=== PATIENT | female | born 2000 | race Caucasian/White ===

== ENCOUNTER → 2018-12-05 13:10 | Outpatient (ROUT) | payer OTHER, SELFPAY | PROVIDERS: PCP Family Medicine; Visit Provider Family Medicine | DX: N18.9 Chronic kidney disease, unspecified (principal); R59.9 Enlarged lymph nodes, unspecified; J02.9 Acute pharyngitis, unspecified | CPT/HCPCS: 87081; 87147 ==

== ENCOUNTER 2021-03-23 12:48 | Emergency (ER) | payer OTHER, SELFPAY ==
[2021-03-23 12:58] VITALS: BP 121/65; PULSE 91; RESP 15; TEMP 36.1; O2SAT 97; BMI 24.3
--- NOTE | 2021-03-23 14:58 | DI.RAD.S_ITS ---
PROCEDURE: XR ELBOW RT MIN 3V INDICATIONS: continued elbow pain TECHNIQUE: 3 views of the elbow were acquired. COMPARISON: None. FINDINGS: Bones: No fractures or dislocations. No suspicious bony lesions. Soft tissues: No elbow joint effusion. No suspicious soft tissue calcifications. IMPRESSION: No evidence acute bony abnormality of the right elbow. If clinical suspicion and/or symptoms persist, further assessment with repeat plain films, or advanced imaging (e.g., CT, MRI, or bone scan) may be helpful for further assessment. Dictated by: Constantine Dillon M.D. on 03/23/2021 at 15:10 Approved by: Constantine Dillon M.D. on 03/23/2021 at 15:11
--- NOTE | 2021-03-23 16:08 | ED_ITS ---
HPI - Extremity Injury (Upper) <Paco Izquierdo PA-C - Last Filed: 03/24/21 10:48> General Chief Complaint: Extremity Injury, Upper Stated Complaint: Rt Elbow Injury, Fall, 2 Wks Ago Time Seen by Provider: 03/23/21 13:18 Source: patient Mode of arrival: Ambulatory Limitations: no limitations History of Present Illness HPI narrative: Lois presents today with chief complaint of continued right elbow pain. She reports that she had a fall directly onto her right elbow approximately 2 weeks ago. She was seen at the walk-in clinic in x-rays were done which did not show any obvious fracture. She then followed up 3 days later because of continued pain. Repeat x-rays were done which again did not show any obvious fracture but recommended CT scan if pain persisted to evaluate for occult fracture. She reports that she has been applying ice, doing light range of motion, and not really lifting anything with her arm. Over the last 2 days has had increased swelling and pain to her right elbow. She is concerned that there may have been an underlying fracture that was not revealed with the 1st to radiographs. She denies any significant numbness or tingling, rash, or any other acute concerns or complaints at this time. Related Data Home Medications Medication Instructions Recorded Confirmed [probiotics] #0 08/14/17 multivitamin (Multiple Vitamins) 1 tab PO QDAY #0 08/14/17 norethindrone 1 mg-ethinyl #0 08/14/17 estradiol 20 mcg (24)-iron 75 mg (4) tablet () sertraline 100 mg tablet (Zoloft) #0 08/14/17 Previous Rx's Medication Instructions Recorded ciprofloxacin HCl 250 mg tablet 250 mg PO BID #6 tab 08/14/17 phenazopyridine 200 mg tablet 200 mg PO TID #6 tab 08/14/17 (Pyridium) Allergies Allergy/AdvReac Type Severity Reaction Status Date / Time Sulfa (Sulfonamide Allergy Verified 03/23/21 12:58 Antibiotics) buspirone [From BUSPAR] AdvReac Unknown Verified 03/23/21 12:58 escitalopram [From LEXAPRO] AdvReac Unknown Verified 03/23/21 12:58 Review of Systems <Paco Izquierdo PA-C - Last Filed: 03/24/21 10:48> Review of Systems Narrative: As per HPI Patient History <Paco Izquierdo PA-C - Last Filed: 03/24/21 10:48> Social History Smoking Status: Unknown if ever smoked Smoking Status: Unknown if ever smoked alcohol intake frequency: holidays/special occasions only Substance Use Type: does not use Exam <Paco Izquierdo PA-C - Last Filed: 03/24/21 10:48> Narrative Exam Narrative: Exam Narrative: Const General: cooperative, healthy appearing, comfortable, no acute distress, well developed and well groomed Nutritional Appearance: average body habitus Orientation: alert and oriented x3 HENMT Head: normal to inspection and atraumatic Ears: hearing grossly normal bilaterally Nose: external nose normal and nares normal Face and sinus: normal facial exam Neck Neck: normal visual inspection and supple Resp Effort & Inspection: normal respiratory effort, able to speak in complete sentences, no audible wheezes, not labored, no nasal flaring and no respiratory distress Neuro General: alert, oriented x3, gait normal, tone normal and moves all extremities Cognition: normal cognition Speech: speech normal Gait: normal gait Extremities: Upper extremities exposed. Grossly normal in appearance with no obvious swelling, ecchymosis or erythema. No joint effusions noted. Slightly decreased range of motion of right elbow secondary to pain. She has tenderness to palpation just proximal to the elbow joint, at the elbow joint, and just distal to the elbow joint. Radial pulses are equal bilaterally. Sensation is intact and normal in bilateral upper extremities. Billiard Table Repairer strength is equal. No overlying skin abnormalities noted. No overt warmth noted. Psych Appearance: grossly normal and well kempt Mental Status: mental status grossly normal Speech and Movement: speech and movement normal Mood: congruent mood Affect: normal affect Initial Vital Signs Initial Vital Signs: Vital Signs Temperature 97 F L 03/23/21 12:58 Pulse Rate 91 H 03/23/21 12:58 Respiratory Rate 15 03/23/21 12:58 Blood Pressure 121/65 03/23/21 12:58 Pulse Oximetry 97 03/23/21 12:58 <Aminata Gutierrez MD - Last Filed: 03/30/21 07:23> Initial Vital Signs Initial Vital Signs: Vital Signs Temperature 97 F L 03/23/21 12:58 Pulse Rate 91 H 03/23/21 12:58 Respiratory Rate 15 03/23/21 12:58 Blood Pressure 121/65 03/23/21 12:58 Pulse Oximetry 97 03/23/21 12:58 Course <Paco Izquierdo PA-C - Last Filed: 03/24/21 10:48> Orders Ordered: ED Orders 03/23/21 14:58 XR elbow RT min 3V Stat Vital Signs Vital signs: Vital Signs - 8 hr 03/23/21 12:58 Temperature 97 F L Pulse Rate 91 H Respiratory Rate 15 Blood Pressure 121/65 Pulse Oximetry 97 <Aminata Gutierrez MD - Last Filed: 03/30/21 07:23> Orders Ordered: ED Orders 03/23/21 14:58 XR elbow RT min 3V Stat Vital Signs Vital signs: Vital Signs - 8 hr 03/23/21 12:58 Temperature 97 F L Pulse Rate 91 H Respiratory Rate 15 Blood Pressure 121/65 Pulse Oximetry 97 MDM - Extremity Injury (Upper) <Paco Izquierdo PA-C - Last Filed: 03/24/21 10:48> Lab Data Labs: Point of Care Testing Test Results Negative MDM Narrative Medical decision making narrative: Differential diagnosis considered includes fracture, sprain, ligament rupture, bursitis. Patient does not have any obvious fractures including avulsion fractures on x-ray or CT scan. No obvious joint effusion noted. She has intact range of motion. If she continues to have pain then an MRI likely would be warranted. Recommend PCP follow-up. Strict return precautions were discussed including fever, increased joint swelling, joint redness, rash or any other acute concerns or complaints. Patient verbalizes understanding and agrees to plan and has no further concerns at this time. Thank you A [id number] system was used with the dictation of this note. Please disregard any spelling or grammatical errors. <Aminata Gutierrez MD - Last Filed: 03/30/21 07:23> Lab Data Labs: Point of Care Testing Test Results Negative Discharge Plan Departure Patient Disposition: Home Clinical Impression: Effusion of right elbow, Elbow pain, right Instructions: DI for Elbow Pain Activity Restrictions/Additional Instructions: It was nice to meet you this afternoon. No obvious fracture was identified on x-ray or CT. Recommend continuing to apply ice, do light range of motion and use acetaminophen or ibuprofen as needed for pain management. Consider following up with PCP if symptoms fail to improve and getting an MRI. Thank you Paco Izquierdo PA-C Prescriptions: No Action multivitamin [Multiple Vitamins] 1 EACH tablet 1 tab PO QDAY Qty: 0 RF: 0 sertraline [Zoloft] 100 MG tablet Qty: 0 RF: 0 norethindrone-e.estradiol-iron [] 1 EACH tablet Qty: 0 RF: 0 [probiotics] Qty: 0 RF: 0 phenazopyridine [Pyridium] 200 MG tablet 200 mg PO TID Qty: 6 RF: 0 ciprofloxacin HCl 250 MG tablet 250 mg PO BID Qty: 6 RF: 0 <Aminata Gutierrez MD - Last Filed: 03/30/21 07:23> Cosign ED Attending Cosignature Attestation: I was immediately available in the department for consultation throughout this patient's visit. I agree with documentation as above. Aminata Gutierrez MD
--- NOTE | 2021-03-23 16:14 | DI.CT.S_ITS ---
PROCEDURE: CT UE RT WO CON INDICATIONS: possible distal humerous fracture, normal xray TECHNIQUE: Noncontrast 1-1.5 mm axial sections were acquired through the elbow joint, with coronal and sagittal reformats. COMPARISON: [facility], , XR ELBOW RT MIN 3V, 03/23/2021, 14:54. FINDINGS: Image quality: Excellent. Bones: No fracture identified at the elbow. Soft tissues: Elbow joint effusion. IMPRESSION: There is an elbow joint effusion. There is no CT evidence of acute bony fracture. However, occult fracture is not excluded. Comment: Consider repeat plain films in 7-10 days. Alternatively, consider nonemergent MRI. Dictated by: Constantine Dillon M.D. on 03/23/2021 at 17:24 Approved by: Constantine Dillon M.D. on 03/23/2021 at 17:27
[2021-03-23 16:22] VITALS: BP 126/47; PULSE 73; RESP 16; O2SAT 100
== END 2021-03-23 18:31 | disposition home or self-care (01) ==
PROVIDERS: Emergency Provider Physician Assistant
DX: M25.421 Effusion, right elbow (principal); M25.521 Pain in right elbow; W19.XXXA Unspecified fall, initial encounter
CPT/HCPCS: 73080; 73200; 81025; 99283; 99284